=== PATIENT | male | born 1960 | race Caucasian/White ===

== ENCOUNTER 2023-10-28 08:34 | Day surgery (SDC) | payer MEDICAID, SELFPAY ==
[2023-10-24 10:49] VITALS: BMI 23.4
--- NOTE | 2023-10-25 08:48 | P.CONAN_ITS ---
Documented by User: Theodora George NP 10/25/23 08:48 HPI - Anesthesia Eval Consult details Narrative: 62yo M for Colonoscopy [facility] Past Medical History Medical History Crohn's disease Surgical History Surgical History History of surgery on lower extremity Hx of Achilles tendon repair H/O colonoscopy Social History Social History Patient Tobacco Use Status: Never used Tobacco Use of substances other than those prescribed or required for medical reasons: No Are you DNR?: No Advance Directives: No Advance Directives Information Provided: Yes Meds Allergies Allergy/AdvReac Type Severity Reaction Status Date / Time gluten Allergy Unknown Unknown Verified 10/28/23 08:41 lactose Allergy Unknown Unknown Verified 10/28/23 08:41 Home Medications Medication Instructions Recorded Confirmed Last Taken Type cholecalciferol (vitamin D3) 25 25 mcg PO DAILY 10/24/23 10/28/23 Unknown History mcg (1,000 unit) capsule (Vitamin D3) magnesium oxide 200 mg PO DAILY 10/24/23 10/28/23 Unknown History mesalamine 1.2 gram tablet,delayed 4.8 g PO DAILY 10/24/23 10/28/23 Unknown History release (Lialda) multivitamin 1 tab PO DAILY 10/24/23 10/28/23 Unknown History riboflavin (vitamin B2) 100 mg 100 mg PO DAILY 10/24/23 10/28/23 Unknown History tablet (Vitamin B-2) Exam Height,Weight and Vital Signs: Height 5 ft 8.5 in Weight 70.76 kg Assessment and Plan Assessment Anesthesia Assessment: Chart Reviewed Documented by User: Cayla Milan MD 10/28/23 08:55 PMF Past Medical History Medical History Crohn's disease Family History Family history of problems with anesthesia: No Surgical History Surgical History History of surgery on lower extremity Hx of Achilles tendon repair H/O colonoscopy History of Problems with Anesthesia: No Social History Social History Patient Tobacco Use Status: Never used Tobacco Use of substances other than those prescribed or required for medical reasons: No Are you DNR?: No Advance Directives: No Advance Directives Information Provided: Yes Meds Allergies Allergy/AdvReac Type Severity Reaction Status Date / Time gluten Allergy Unknown Unknown Verified 10/28/23 08:41 lactose Allergy Unknown Unknown Verified 10/28/23 08:41 Home Medications Medication Instructions Recorded Confirmed Last Taken Type cholecalciferol (vitamin D3) 25 25 mcg PO DAILY 10/24/23 10/28/23 Unknown History mcg (1,000 unit) capsule (Vitamin D3) magnesium oxide 200 mg PO DAILY 10/24/23 10/28/23 Unknown History mesalamine 1.2 gram tablet,delayed 4.8 g PO DAILY 10/24/23 10/28/23 Unknown History release (Lialda) multivitamin 1 tab PO DAILY 10/24/23 10/28/23 Unknown History riboflavin (vitamin B2) 100 mg 100 mg PO DAILY 10/24/23 10/28/23 Unknown History tablet (Vitamin B-2) Exam Airway Mallampati Class: II TM Dist: >3cm Neck ROM: Full Heart: rrr Lungs: cta Assessment and Plan Assessment Anesthesia Assessment: Anesthesia Plan Discussed Final Anesthetic Review Family History of Problems with Anesthesia: No History of Problems with Anesthesia: No NPO: Yes ASA Class: II Final Preanesthetic Review: No Changes in Pt Med Stat, Meds/Allgs Chart Reviewed, Consent Obtained/Reviewed and Anes Risks/Benef Reviewed Patient Risk: Low Procedure Risk: Low Anesthetic Plan Anesthetic Plan: MAC: Disposition: Standard PACU
[2023-10-28 08:43] VITALS: BMI 23.1
[2023-10-28 08:48] VITALS: BP 144/51; PULSE 60; RESP 16; TEMP 36.4; O2SAT 99
[2023-10-28 10:05] VITALS: BP 102/66; PULSE 60; RESP 16; TEMP 36.1; O2SAT 99
--- NOTE | 2023-10-28 10:05 | P.BOP_ITS ---
Brief Operative Note Date of Service: 10/28/23 Pre-op diagnosis: Screening, Hx of Crohn's Post-op diagnosis: other (Same, R/O dysplasia) Procedure: Colonoscopy to the cecum and TI with biopsies Surgeon: Chuckie Lerner MD Anesthesia: MAC Was an Clinical Resource Nurse used for this Procedure?: No Estimated blood loss (mL): 2.0 Pathology: other (A. Ascending colon B. Transverse colon C. Descending colon D. Sigmoid colon E. Rectum) Condition: stable Disposition: PACU
[2023-10-28 10:20] VITALS: BP 137/50; PULSE 53; RESP 16; TEMP 36.2; O2SAT 100
--- NOTE | 2023-10-28 10:30 | OP_ITS ---
DATE OF SERVICE: 10/28/2023 SURGEON: Chuckie Lerner MD INDICATIONS: The patient presents for followup of colorectal cancer screening and underlying history of Crohn's disease. Full consent obtained from him for this, including risks of bleeding and perforation. PREOPERATIVE DIAGNOSIS: POSTOPERATIVE DIAGNOSIS: PROCEDURE PERFORMED: Colonoscopy to the cecum and terminal ileum with multiple biopsies. ESTIMATED BLOOD LOSS: COMPLICATIONS: ANESTHESIA: Monitored anesthesia care. ASSISTANTS: SPECIMENS: PREOPERATIVE DIAGNOSES: Colorectal cancer screening and history of Crohn's disease. POSTOPERATIVE DIAGNOSES: Colorectal cancer screening and history of Crohn's disease, rule out dysplasia, diverticulosis, and internal hemorrhoids. DESCRIPTION OF PROCEDURE: The patient was placed in the left lateral decubitus position. The digital rectal exam revealed no abnormalities and no perianal disease. The Olympus video pediatric colonoscope was entered into the rectum and advanced to the cecum with the assistance of abdominal pressure and turning the patient into the supine position. Once in the cecum, I did identify cecal pouch with normal-appearing ileocecal valve. The terminal ileum was cannulated and appeared normal. There was no ileitis. The scope was withdrawn back in the colon. The cecum did have some scarring consistent with previous colitis, but no active colitis and no polyps. The scope was slowly withdrawn assessing all mucosal surfaces carefully. Preparation was excellent. There was some scarring from previous colitis in the proximal ascending colon, but the remainder of the colon appeared normal. I did not visualize any sign of active colitis, polyps, nor angiodysplasia. There was a mild amount of sigmoid diverticulosis. I did obtain random biopsies in the ascending colon, transverse colon, descending colon, sigmoid colon and rectum. In the rectum, the scope was retroflexed visualizing some internal hemorrhoids, but no other pathology. The rectal mucosa appeared normal. The scope was straightened and withdrawn from the patient. He tolerated the procedure well and was returned to the recovery area in stable condition. IMPRESSION: 1. History of Crohn's disease, rule out dysplasia. 2. Diverticulosis. 3. Internal hemorrhoids. PLAN: The results of the biopsies will be checked. He will continue his current regimen of mesalamine 4.8 g daily. Assuming there is no dysplasia, I would recommend a repeat colonoscopy in 3 years. I would recommend he see me in 1 year for a followup office visit. He was advised not to use any aspirin and NSAIDs for least 1 week, but was advised to avoid NSAIDs long-term in regard to the underlying history of inflammatory bowel disease as well. MD LAINEY Ogden/EWELINA / [id number] MTDD
== END 2023-10-28 11:15 | disposition home or self-care (01) ==
PROVIDERS: PCP Family Medicine; Visit Provider Internal Medicine
PROC: 0DJD8ZZ Inspection of Lower Intestinal Tract, Via Natural or Artificial Opening Endoscopic (ICD-10-PCS; CPT 45378; principal; 2023-10-28 09:30)
DX: Z12.11 Encounter for screening for malignant neoplasm of colon (principal); Z87.19 Personal history of other diseases of the digestive system; K57.30 Diverticulosis of large intestine without perforation or abscess without bleeding; K64.8 Other hemorrhoids; Z79.899 Other long term (current) drug therapy
CPT/HCPCS: 45380; 88305; J2704